=== PATIENT | female | born 1995 ===

== ENCOUNTER → 2019-04-29 | Outpatient (CLI) | payer MEDICAID ==
[~2019-04-29] MED LIST: FLUO40CA67 PO; FOL5I IM; FOLI0.8C PO; HYDR25CA83 PO; LOR1 PO; MELO-205 PO; PARO40TA88 PO; PEDI1TAB4 PO
== END ==
LOC: LAB 09:23
PROVIDERS: ATTEND Obstetrics & Gynecology
DX: O09.891 Supervision of other high risk pregnancies, first trimester (principal); O99.311 Alcohol use complicating pregnancy, first trimester
CPT/HCPCS: 36415; 80305; 81511

== ENCOUNTER → 2019-06-20 | Outpatient (CLI) | payer MEDICAID ==
[~2019-06-20] MED LIST changes: +DIPH0.5S2 IM
--- NOTE | 2019-06-20 14:31 | RADIOLOGY IMAGING REPORT ---
[place] [facility] [place] NAME: Geri Vaughn : 1995 MR: [id number] V: [id number] EXAM DATE: ORDERING PHYSICIAN: GEORGES BANUELOS TECHNOLOGIST: Location: [facility] Patient: Geri Vaughn : 1995 Visit/Account:[id number] Date of Sevice: 06/20/2019 Limited OB ultrasound Indication: Evaluate growth/ROXANNA Comparison: No prior exams available for comparison. FINDINGS: Intrauterine gestations: one presentation: Vertex heart rate: 160 bpm Amniotic fluid index: 13.1 cm Largest amniotic fluid pocket 4.1 cm Placenta: Anterior without previa Gestational Parameters: BPD: 7.07 cm 28 weeks and 3 days. 91st percentile HC: 26.35 cm 28 weeks and 5 days. 88 percentile AC: 23.10 cm 27 weeks and 4 days. 69th percentile FL: 5.10 cm 27 weeks and 3 days. 59th percentile Average ultrasound age (AUA): 28 weeks and 1 day . Estimated gestational age based on LMP datin weeks and 4 days Estimated weight (EFW): 1098 grams EFW for LMP: 80th percentile IMPRESSION: 1. Single live intrauterine gestation; estimated ultrasound age 28 weeks and 1 day. 2. ROXANNA measures 13.1 cm Report Dictated By: Gallito Mayer MD at 06/20/2019 1:50 PM Report E-Signed By: Gallito Mayer MD at 06/20/2019 2:22 PM WSN:[email or web address]
== END ==
LOC: RAD 09:37
PROVIDERS: ATTEND Obstetrics & Gynecology
DX: O26.843 Uterine size-date discrepancy, third trimester (principal); O34.00 Maternal care for unspecified congenital malformation of uterus, unspecified trimester

== ENCOUNTER → 2019-06-20 | Outpatient (CLI) | payer MEDICAID ==
[2019-06-20 11:44] LABS: PLATELET COUNT, AUTOMATED 320 K/uL (150-450)
== END ==
LOC: LAB 10:30
PROVIDERS: ATTEND Obstetrics & Gynecology
DX: Z13.0 Encounter for screening for diseases of the blood and blood-forming organs and certain disorders involving the immune mechanism (principal); Z13.1 Encounter for screening for diabetes mellitus
CPT/HCPCS: 36415; 82950; 85025